=== PATIENT | male | born 1940 | race Caucasian/White ===

== ENCOUNTER → 2020-04-05 10:27 | Outpatient (CLI) | payer MEDICARE, SELFPAY ==
--- NOTE | 2020-04-05 10:36 | DI.NM.S_ITS ---
PROCEDURE: NM BONE SCAN WHOLE BODY RADIOPHARMACEUTICAL: 17.80 mCi Tc-99m MDP IV. INDICATIONS: PROSTATE CANCER TECHNIQUE: Delayed whole-body scintigrams were obtained approximately 3-4 hours after intravenous injection of radiotracer. Anterior and posterior views were acquired from vertex to feet. Additional left and right oblique views of the pelvis were obtained. COMPARISON: [facility], CT, CT CHEST ABD PEL W CON, 04/05/2020, 12:10. FINDINGS: Symmetric and mildly increased uptake in bilateral shoulder joints, sternoclavicular joints, hip joints, knee joints and ankle joints are seen most consistent with osteoarthritic changes. No focal area of intensely increased uptake is noted to suggest focal bony metastasis. Mildly increased uptake in mid to lower lumbar spine is seen consistent with degenerative disc disease. IMPRESSION: 1. No evidence of bony metastasis. 2. Osteoarthritic changes and degenerative disc disease as above. Dictated by: Phill Salazar M.D. on 04/05/2020 at 15:37 Approved by: Phill Salazar M.D. on 04/05/2020 at 15:40
--- NOTE | 2020-04-05 10:37 | DI.CT.S_ITS ---
PROCEDURE: CT CHEST ABD PEL W CON INDICATIONS: PROSTATE CANCER TECHNIQUE: After the administration of oral and intravenous contrast, 5 mm thick sections acquired from the lung apices to the symphysis. 5 mm coronal and sagittal reformats were performed, with additional 7 mm coronal MIP reformats through the lungs. For radiation dose reduction, the following was used: automated exposure control, adjustment of mA and/or kV according to patient size. COMPARISON: None. FINDINGS: Image quality: Excellent. CHEST: Lungs and pleura: Scattered subsegmental atelectasis and/or scarring. No focal consolidation. No pleural effusions or pneumothorax. Minimal diffuse bronchiectasis Airway thickening in keeping with nonspecific bronchitis and/or reactive airways disease. Mediastinum: Heart size is normal. Coronary artery calcifications are present. No pericardial effusion. No mediastinal or hilar adenopathy by size criteria. Thoracic aorta and central pulmonary arteries are normal in size. Esophagus is normal in caliber. No hiatal hernia. Chest wall: No axillary or supraclavicular adenopathy by size criteria. Thyroid gland negative. ABDOMEN: Solid organs: Liver is normal in size and enhancement. Gallbladder negative. Biliary system is non dilated. Pancreas enhances normally. Spleen is normal in size and enhancement. No adrenal nodules. Kidneys demonstrate normal size and enhancement, without hydronephrosis. There is left parapelvic cyst. Peritoneum and bowel: Bowel loops demonstrate normal wall thickness and caliber. No free fluid or air. Colonic diverticulosis is seen without evidence of acute complication. Nodes and vessels: No retroperitoneal or mesenteric adenopathy by size criteria. Aorta and inferior vena cava are normal in size. Miscellaneous: No ventral hernias. PELVIS: Genitourinary: Markedly enlarged prostate. Bladder partially collapsed otherwise unremarkable. Riley catheter is noted. Miscellaneous: No inguinal hernias or adenopathy. Bones: 3 mm sclerotic focus in the proximal right femur on image 125/2. No vertebral body compression fractures. Spondylosis and facet arthropathy. IMPRESSION: Overall, no evidence of metastatic disease. Enlarged prostate. Nonspecific sub-5 mm sclerotic focus involving the proximal right femur. Recommend attention to this area on pending bone scan. Dictated by: Navi Taylor M.D. on 04/05/2020 at 13:29 Approved by: Navi Taylor M.D. on 04/05/2020 at 13:44
[2020-04-05 11:36] LABS: BUN Creatinine Ratio 26.5 (6-22); Blood Urea Nitrogen 22 mg/dL (9-20); Calcium 9.8 mg/dL (8.4-10.2); Carbon Dioxide 24 mmol/L (22-32); Chloride 108 mmol/L (98-107); Estimated Glomerular Filt Rate > 60.0 mL/min (>60); Glucose 92 mg/dL (80-110); HEMOLYSIS 17 (0-50); Potassium 4.3 mmol/L (3.4-5.1); Sodium 138 mmol/L (137-145)
== END ==
PROVIDERS: PCP Family Medicine; Referring Provider Specialist; Visit Provider Specialist
DX: C61 Malignant neoplasm of prostate (principal); R97.20 Elevated prostate specific antigen [PSA]; R33.9 Retention of urine, unspecified; I25.10 Atherosclerotic heart disease of native coronary artery without angina pectoris; N28.1 Cyst of kidney, acquired; K57.90 Diverticulosis of intestine, part unspecified, without perforation or abscess without bleeding
CPT/HCPCS: 36415; 71260; 74177; 78306; 80048; A9503; Q9967

== ENCOUNTER → 2020-05-02 12:26 | Outpatient (CLI) | payer MEDICARE, SELFPAY ==
--- NOTE | 2020-05-02 | DI.MRI.S_ITS ---
PROCEDURE: MR PELIS WO/W CON INDICATIONS: elevated prostate specific antigen TECHNIQUE: Coronal HASTE, axial T1 FSE with fat saturation, 3-plane nonbreath-hold T2 FSE. After the administration of contrast, dynamic axial, delayed axial and coronal VIBE or 2-D FLASH with fat saturation through the pelvis. Optional diffusion weighted imaging and ADC may be performed. COMPARISON: [facility], NM, NM BONE SCAN WHOLE BODY, 04/05/2020, 14:05. [facility], CT, CT CHEST ABD PEL W CON, 04/05/2020, 12:10. FINDINGS: Image quality: Diffusion weighted and dynamic contrast enhanced images are diagnostic. Prostate: Gland size is 6.0 x 5.9 x 6.1 cm; ellipsoid gland volume is 112 mL. There is marked heterogeneous enlargement of the transition zone compatible with BPH. No evidence of extraprostatic extension. Lesion size(s): Lesion 1: 1.7 x 1.3 x 1.6 cm. Lesion 2: 1.0 x 0.8 x 0.8 cm. Lesion 3: 2.0 x 1.8 x 2.2 cm. Lesion location(s) (sector): Lesion 1: Left lateral transition zone in the mid gland. Lesion 2: Right lateral transition zone in the mid gland to apex. Lesion 3: Right medial transition zone in the mid gland. Lesion description: Lesion 1: T2 hypointense oval lesion with indistinct margins. Lesion 2: T2 hypointense oval lesion with indistinct margins. Lesion 3: T2 hypointense lenticular lesion with irregular margins. T2 weighted imaging (T2WI) morphology score: Lesion 1: 5 Lesion 2: 4 Lesion 3: 5 Diffusion weighted imaging (DWI) morphology score: Lesion 1: 3 Lesion 2: 3 Lesion 3: 3 Dynamic contrast enhancement (DCE): Lesion 1: Present Lesion 2: Present Lesion 3: Present Lesion PI-RADS score: Lesion 1: PI-RADS 5 Lesion 2: PI-RADS 4 Lesion 3: PI-RADS 5 Genitourinary system: There is concentric bladder wall thickening and trabeculation suggesting chronic bladder outlet ejection. A urinary bladder is present extending into the bladder. Distal ureters are non distended. Bowel and peritoneum: No pathologic free pelvic fluid. Inferior colon and small bowel loops are normal in caliber. There is colonic diverticulosis without acute diverticulitis. Nodes and vessels: No pelvic or inguinal adenopathy by size criteria. Iliac vessels are normal in caliber. Soft tissues: No inguinal hernias. Bones: Marrow demonstrates normal overall signal, without suspicious lesions to suggest metastases. There is mild periarticular edema and enhancement within the ileum along the right inferior sacroiliac joint. IMPRESSION: 1. Bilateral suspicious lesions demonstrated in the transition zone including 2 PI-RADS 5 lesions consistent with very high likelihood of clinically significant prostate cancer. An additional smaller right PI-RADS 4 lesion is also demonstrated. 2. No evidence of extraprostatic extension or lymphadenopathy in the pelvis by size criteria. 3. No evidence of osseous metastatic disease in the pelvis. Degenerative change demonstrated along the inferior right sacroiliac joint. 4. Bladder wall thickening and trabeculation consistent with sequela of chronic bladder outlet obstruction. Dictated by: Vish Saavedra M.D. on 05/03/2020 at 9:27 Approved by: Vish Saavedra M.D. on 05/03/2020 at 10:05
== END ==
PROVIDERS: PCP Family Medicine; Referring Provider Specialist; Visit Provider Specialist
DX: N42.9 Disorder of prostate, unspecified (principal); R97.20 Elevated prostate specific antigen [PSA]; N32.89 Other specified disorders of bladder
CPT/HCPCS: 72197; A9579

== ENCOUNTER 2020-06-17 09:27 | Inpatient (IN) | payer MEDICARE, SELFPAY ==
[2020-06-10 10:53] VITALS: BMI 24.2
[2020-06-17] VITALS (14 sets, daily range): BP systolic 108–153; BP diastolic 62–86; PULSE 59–76; RESP 9–20; TEMP 36.1–37; O2SAT 95–100; BMI 24.2
--- NOTE | 2020-06-17 | PATH_ITS ---
[facility] Accession Number: [id number] . 01 Material submitted: . PART A: lymph node - RIGHT PELVIC NODE PART B: lymph node - LEFT PELVIC NODE PART C: prostate - PROSTATE WITH ATTACHED SEMINAL VESICLES . 02 Diagnosis: A. Right Pelvic Lymph Nodes, Excision: Three benign lymph nodes. . B. Left Pelvic Lymph Nodes, Excision: Three benign lymph nodes. . C. Prostate with Attached Seminal Vesicles, Radical Prostatectomy: Prostate with benign prostatic hyperplasia, areas of partial atrophy, and foci of prominent benign basal cell hyperplasia. No evidence of malignancy. [facility] 06/21/2020 1533 Local . 02 Comment: As part of routine quality assurance assessor, Dr. Carver has reviewed select slides from this case (C21, 26, 27, 32, and 33), and agrees with the diagnosis of benign basal cell hyperplasia. . 02 Electronically signed: . Frederick Rose MD, PhD, Pathologist NPI- [id number] . 01 Gross description: . Specimen A is received in formalin, labeled with patient identification and right pelvic node. It consists of two yellow-rose and lobulated soft tissue pieces measuring 3.7 x 2.2 x 1.1 cm in aggregate. There are three lymph node candidates measuring from 0.5 to 2.9 cm in greatest dimension. All the lymph node candidates are submitted. Forms Designer sections are submitted in three cassettes. . Summary of sections: A1 - one bisected lymph node candidate and one intact lymph node candidate (inked blue), three pieces. A2-A3 - on sectioned lymph node candidate, together, four pieces each. . Specimen A is received in formalin, labeled with patient identification and left pelvic node. It consists of a yellow-rose and lobulated soft tissue piece measuring 3.5 x 2.1 x 0.9 cm. There are three lymph node candidates ranging from 0.6 to 1.8 cm in greatest dimension. All of the lymph node candidates are submitted in three cassettes. . Summary of sections: B1 - two intact lymph node candidates, two pieces. B2-B3 - one sectioned lymph node candidate, together, four pieces each. . Specimen C is received in formalin, labeled with patient identification and prostate with attached seminal vesicles. It consists of a 117-gram intact prostate (5.5 cm from superior to inferior, 5.5 cm from left to right, and 4.8 cm from anterior to posterior) with bilateral seminal vesicles (L: 2.5 x 1.2 x 0.5 cm; R: 2.8 x 1.5 x 0.9 cm) and bilateral vasa differentia (2.1 to 4.4 cm in length and 0.5 cm in diameter). The capsule is pink-rose and ragged. The specimen is inked as follows: anterior midline-orange; posterior midline-yellow; right-black; left-blue. After removal of the base and apex margins, the prostate is sectioned into 10 slices. Sectioning reveals multicystic and multinodular cut surfaces. A 2.3 x 2.1 x 2.0 cm well-defined grider-orange focus is present at the posterior right periphery, involving slices 4 and 7. Forms Designer sections are submitted in 42 cassettes. . Summary of sections: C1 - right seminal vesicle and vas deferens, two pieces. C2 - left seminal vesicle and vas deferens, two pieces. C3-C4 - left base margin, perpendicular, six pieces ach. C5-C6 - right base margin, perpendicular, six in C5, five in C6. C7 - right apex margin, perpendicular, seven pieces. C8 - left apex margin, perpendicular, eight pieces. C9-C10 - slice 2, right prostate, one piece each. C11-C12 - slice 2, left prostate, one piece13 each. C13 - C15 - slice 4, right prostate, one piece each. C16-C18 - slice 4, left prostate, one piece each. C19-C21 - slice 5, right prostate, one piece each. C22-C24 - slice 5, left prostate, one piece each. C25-C27 - slice 6, right prostate, one piece each. C28-C30 - slice 6, left prostate, one piece each. C31-C33 - slice 7, right prostate, one piece each. C34-C36 - slice 7, left prostate, one piece each. C37-C39 - slice 9, right prostate, one piece each. C40-C42 - slice 9, left prostate, one piece each. (TN:[id number]) /MRV 06/18/2020 1522 Local . 02 Microscopic: . Sections are of benign prostatic parenchyma. There are a few foci with prominent clusters of epithelioid cells with bland cytology and no signficant mitotic activity (present in blocks C21, 26, 27, 32, 33). To further evaluate these cells of interest, a limited panel of immunohistochemical stains is performed on block C26 (each with an appropriately positive control). The cells of interest are strongly and diffusely positive for high molecular weight keratin/p63 immunoreactivity, and are negative for PA-3 immunoreactivity. The morphology and immunoprofile are consistent with basal cell hyperplasia, and exclude the possibility of prostatic or urothelial neoplasm. . * This test was developed and its performance characteristics determined by [facility]. It has not been cleared or approved by the U.S. Food and Drug Administration. The FDA has determined that such clearance or approval is not necessary. This test is used for clinical purposes. It should not be regarded as investigational or for research. . 02 Pathologist provided ICD-10: N40.1, R33.9, R97.20 . 02 CPT . 084799, 010346, 343907, [id number], [id number] Performed at: 01 [facility] [address], [place], [place] [id number] MD Vish Russo MD Phone: [phone] Performed at: 02 [facility] [address] [place], [place] [id number] MD Sherri Carver MD Phone: [phone]
[2020-06-17] MEDS: LACTATED RINGERS 1,000 ML 42 ML IV ×2 (11:35→15:25)
[2020-06-17] MEDS: VANCOMYCIN 1,000 MG/200 ML PIGGYBACK 200 MG IV (11:44)
--- NOTE | 2020-06-17 12:01 | PM.PREOP ---
Pre-operative Note Interval Note History & Physical reviewed/Exam performed by Physician: Yes Changes to H&P: No
[2020-06-17 12:43] LABS: Hematocrit 44.1 % (41-53); Hemoglobin 14.8 g/dL (13.5-17.5); Mean Corpuscular HGB Conc 33.5 % (30-36); Mean Corpuscular Hemoglobin 29.9 PG (26-34); Mean Corpuscular Volume 89.3 fL (80-100); Platelet Count 129 X10^3/uL (150-400); Red Blood Cell Count 4.94 X10^6/uL (4.5-5.9); Red Cell Distribution Width 13.2 % (11.6-14.8); White Blood Cell Count 5.1 X10^3/uL (4.5-11.0)
[2020-06-17] MEDS: GENTAMICIN 160 MG in SODIUM CHLORIDE 0.9% 100 ML 104 ML IV (12:52)
[2020-06-17 12:57] LABS: BUN Creatinine Ratio 23.5 (6-22); Blood Urea Nitrogen 19 mg/dL (9-20); Calcium 10.4 mg/dL (8.4-10.2); Carbon Dioxide 28 mmol/L (22-32); Chloride 106 mmol/L (98-107); Estimated Glomerular Filt Rate > 60.0 mL/min (>60); Glucose 87 mg/dL (80-110); HEMOLYSIS 16 (0-50); Potassium 4.7 mmol/L (3.4-5.1); Sodium 139 mmol/L (137-145)
[2020-06-17] MEDS: ACETAMINOPHEN IV 1,000 MG/100 ML VIAL 400 MG IV (13:18)
[2020-06-17] MEDS: BUPIVACAINE LIPOSOME 266 MG/20 ML VIAL INJ (13:51)
--- NOTE | 2020-06-17 15:25 | PM.OP.1 ---
Operative Date/Time/Diagnoses Date of procedure: 06/17/20 Time of procedure: 15:25 Pre-op diagnosis: Urinary retention Elevated PSA Post-op diagnosis: same Procedure & Clinicians Procedure: 1. Radical retropubic prostatectomy and bilateral pelvic lymphadenectomy Same procedure as scheduled: Yes Indications: 1. Urinary retention 2. Elevated PSA Director Of Child Welfare Services: Ivanna Villanueva Click Yes if Unassisted: No Anesthesia Type: General, Spinal (Duramorph) and Local (1.33% Exparel) Operative Notes Findings: Normal tissue planes. Lymph node packets were palpably and visibly benign. The prostate was markedly enlarged without suspicious areas seen at the level of the capsule. Closure Type: primary Specimen(s): none sent (1. Left pelvic lymph nodes. 2. Right pelvic lymph nodes. 3. Prostate with attached seminal vesicles.) Applied: catheter (Eighteen Bulgarian silicone Riley catheter) and drain(s) (Fifteen Bulgarian fenestrated Florian drain) Estimated Blood Loss (mL): 50 Blood products transfused: none Tourniquet time (min): 0 Procedure in detail: Patient was positioned in supine following did administration of Duramorph spinal anesthetic. He was provided general anesthetic. The abdomen genitalia and groin were then prepped and draped in sterile fashion. A 20 Bulgarian Riley catheter was inserted lower urinary tract the balloon inflated to 10 cc is placed to gravity drainage. Next a midline infraumbilical incision was made using sharp cautery and blunt technique. The pelvic retroperitoneum was then entered. The peritoneal contents were then reflected superiorly the anterior lateral pelvic sidewalls were then carefully exposed using blunt technique. Using the same steps and maneuvers bilateral pelvic lymph node dissection was performed as follows: The thin adventitia overlying the external iliac vein was divided along its length. The obturator nerve and vessels were identified. Using meticulous blunt technique and cautery technique with the LigaSure Impact device each of the alcon packets were dissected from the obturator fossa. There were then labeled as to the site of procurement and submitted to pathology for routine gross and microscopic examination. The endopelvic fascia was then divided on either side of the prostate. Longitudinal incisions were made the lateral aspect of the prostatic fascia of bilaterally the thin fascial envelope layers were then reflected posteriorly against the rectal wall using blunt technique. The dorsal venous complex was then gathered with a Wolverton clamp. An over hand suture ligature of 0 Monocryl was then applied. A dorsal venous complex was then divided with the LigaSure Impact device. Hemostasis was excellent. Next, the area the prostatic apex and urethra were addressed and careful dissection was carried out to separate the posterior lateral neural pathways from the urethra proper. The urethra was then divided immediately beyond the prostatic apex. The catheter was then cut and brought through the urethra and into the operative field so that the prostate could be reflected anteriorly and superiorly. The rectal urethralis fascia was then divided using blunt and cautery technique with the LigaSure Impact device. A plane was developed between to non base fashion the anterior rectal wall. The posterior lateral vascular pedicles were then carefully isolated successively with applications of large surgical clips were indicated and division with the LigaSure Impact device were indicated, for hemostasis. Now the prostate reflected anteriorly superiorly a transverse incision was made through the non base fascia over the base of the seminal vesicles bilaterally. The seminal vesicles and the ampulla vas as on both sides were then carefully dissected free of surrounding attachments and small vasculature using medium hemo lock clips and sharp division. The bladder neck was then carefully divided from the prostatic base using blunt and cautery technique the specimen was then handed off the field labeled prostate with attached seminal vesicles for routine gross and microscopic examination. The bladder neck was then repaired by a facing the mucosa using an interrupted Lembert technique of 4 0 Monocryl. A small tennis racquet handle repair was then performed posteriorly at 6:00 a.m. using a single horizontal mattress of 0 Monocryl. The Janette sound was then position into the urethra and engaged to expose the distal urethral stump. Interrupted 2 0 Monocryl were placed at the 2468 and 10:00 a.m. positions from outside to inside under direct visualization. The same sutures were brought through their corresponding positions at the neobladder neck. An 18 Bulgarian silicone catheter was then inserted lower urinary tract and then with this tip position within the bladder lumen under direct visualization the balloon was then inflated to 15 cc the neobladder neck and the urethral stump were then brought into approximation and the anastomotic sutures were then tied down successively thus completing the vesicourethral anastomosis. The catheter was then irrigated clear and placed to gravity drainage. A 15 Bulgarian Florian drain was then passed through a separate stab incision to the right of the midline incision and then positioned in posterior the pubic symphysis. It was secured at the level of skin with a 2 0 silk using a Parth Santyl technique. Next the midline fascia and skin were infiltrated with local anesthetic. The fascia was then closed using running 0 PDS beginning at each the superior, and the inferior apex and running it to approximately the mid point were the 2 were then tied to 1 another. The subcutaneous layer was reapproximated a running 2 0 Vicryl. Finally the skin was reapproximated with a running subcuticular 4 0 Monocryl. Then pieces of Telfa were then applied to the incision line and a broader sq to the drain site op site dressing was then applied over each of the Telfa was period the drain was placed to bulb self suction the Riley catheter was left to gravity drainage. The patient was then awakened, transferred to [facility], and transported to recovery room. Complications: none Post-operative Condition: stable Disposition: PACU Plan for aftercare: Acute Care
--- NOTE | 2020-06-17 16:04 | SUR.PHASEI ---
Addendum entered by Ashleigh Wall R.N. 06/17/20 16:06: 1550 - Report received from EROS Gee and care assumed. Original Note: 1555 - Report received from EROS Gee and care assumed.
--- NOTE | 2020-06-17 16:12 | SUR.PHASEI ---
1610 - Report given to EROS Gee and care reassumed.
[2020-06-17] MEDS: LACTATED RINGERS 1,000 ML 125 ML IV (17:02)
[2020-06-17] MEDS: diphenhydrAMINE 50 MG/ML VIAL 25 MG IV (18:01)
--- NOTE | 2020-06-17 22:33 | PC.NURSE ---
Pt is A and O x 4, VSS. He has denied pain and nausea. He was able to eat his evening meal and is drinking fluids. SCDs are in place. Urine output is qs, bloody. ANTOLIN output 105 mLs. Dressing has very small amount of break through, otherwise C/D/I. Pt is able to sleep.
[2020-06-18] VITALS (8 sets, daily range): BP systolic 101–142; BP diastolic 57–82; PULSE 61–81; RESP 16–20; TEMP 36.6–37.6; O2SAT 95–99
[2020-06-18] MEDS: LACTATED RINGERS 1,000 ML 125 ML IV (00:41)
--- NOTE | 2020-06-18 05:51 | PC.NURSE ---
Pt is AxOx4, denies any pain Riley is clearing up, however it is still a bit brown/red tinged. ANTOLIN=50mL sanguinous LR@125mL/hr
--- NOTE | 2020-06-18 07:36 | PM.PN.1 ---
Subjective Subjective Date Patient Seen: 06/18/20 Time Patient Seen: 07:36 Interval history: He had a quiet and restful night and provides no complaints of nausea, vomiting or poor control pain. Exam Vital Signs (past 8 hours): - 06/17/20 23:57 06/18/20 04:41 Temperature 98.6 F 99.3 F Pulse Rate 68 63 Respiratory Rate 18 16 Blood Pressure 108/62 101/57 L Pulse Oximetry 97 95 Oxygen Delivery Method Room Air Oxygen Flow Rate 0 Narrative Exam Narrative: He is resting comfortably in bed and in no distress. Chest-equal and nonlabored bilaterally. Heart-regular rhythm and rate Abdomen-flat dressing and drain site are intact. Drain output is light maroon and thin. Extremity-SCDs in place. No pallor edema or cyanosis. Objective Labs Result Diagrams: 06/17/20 12:29 06/17/20 12:29 Labs: Laboratory Results - last 24 hr 06/17/20 06/17/20 06/17/20 12:29 12:29 12:29 WBC 5.1 RBC 4.94 Hgb 14.8 Hct 44.1 MCV 89.3 MCH 29.9 MCHC 33.5 RDW 13.2 Plt Count 129 L Sodium 139 Potassium 4.7 Chloride 106 Carbon Dioxide 28 BUN 19 Creatinine 0.81 Estimated GFR > 60.0 BUN/Creatinine Ratio 23.5 H Glucose 87 Calcium 10.4 H Blood Type O Positive Antibody Screen Negative Assessment & Plan Assessment & Plan narrative: Assessment: 1. Stable postop day 1. Status post radical retropubic prostatectomy and bilateral pelvic lymphadenectomy. Plan: 1. Increase diet and activity. 2. Pathology pending. Quality VTE Deep Vein Thrombosis/Pulmonary Embolism Present on Admission: No
[2020-06-18] MEDS: ACETAMINOPHEN 325 MG TABLET 650 MG PO ×2 (08:34→23:48)
[2020-06-18] MEDS: ENOXAPARIN 40 MG/0.4 ML SYRINGE SUBCUT (08:34)
[2020-06-18] MEDS: BISACODYL 10 MG SUPP PR (08:34)
[2020-06-18] MEDS: OXYCODONE IR 5 MG TABLET PO ×2 (08:34→17:01)
--- NOTE | 2020-06-18 15:10 | CM.DANOTE ---
Addendum entered by Dianne Lim LPN 06/18/20 15:20: Went to pt's room now with intent to meet him, introduced self and role and prn discussion of d/c issues and options. Pt was found out of bed and in the bathroom. Checked in with [employer]. She reports that pt went into bathroom independently but that he is advised to pull the cord when he is ready to get back to bed so someone can be with him.. P: due to caseload triage will need to defer rest of assessment to the DCP team on for tomorrow. Addendum entered by Dianne Lim LPN 06/18/20 15:15: DCP: assessment: case received, EMR reviewed. Discussed in Team Rounds. Pt is a 80 year old male who admitted yesterday for a scheduled radical prostatectomy and bilateral pelvic lymphadenectomy Surgeon: Dr. Juliana Cortez Payer: Rasheed DOYLE [facility]. Pt lives on [facility] with his significant other: Dayana Benitez. Original Note: Discharge Planning/Care Management Advanced directive, confirm from FAMILY Start: 06/17/20 17:02 Freq: Q24H Status: Active Protocol: Document 06/17/20 17:57 SL (Rec: 06/17/20 17:58 SL [id number]) Advance Directive, confirm on record Time 17:58 Person contacted patient Copy received No CM Discharge Assessment Start: 06/18/20 15:09 Freq: Status: Active Protocol: Document 06/18/20 15:09 ITV (Rec: 06/18/20 15:10 ITV [id number]) Discharge Planning Assessment Advance Directives? Yes Advance Directives on File No History Provided By Medical Record Prior Living Arrangements House Household Members significant other Whiteboard Updated in Patient Room with Yes name and ext. # of Beet Worker Review Status In Process Pre-Anesthesia Assessment Start: 06/10/20 10:53 Freq: Status: Complete Protocol: Document 06/10/20 10:53 CAB (Rec: 06/10/20 11:29 CAB [id number]) Pre-Anesthesia Assessment Preferred Name Otf Patient Information Reviewed Via Phone Assessment Assessment Completed With Patient Diagnostic Results BMP/CMP,Urinalysis Comment Outside labs scanned in, no EKG identified, COVID screen on [place] 06/14 Primary Care Provider Aguila Duque Seen Specialist in Last 12 Months Yes Specialist Seen Urologist Primary Language Malay Police Shift Commander Required No Height 177.8 cm Weight 76.657 kg Body Mass Index (BMI) 24.2 Hearing Ability Hard of Hearing Visual Assist Glasses Dentition Type Teeth, Natural Present Barriers to Learning None Comment Diminished hearing, no aids Hx Anesthesia Reactions Pt states no prior surgical history Hx Family Anesthesia Reaction No Hx Malignant Hyperthermia No Hx Blood Transfusions No Anesthesia Review Requested No alcohol intake current alcohol intake frequency a few times a week Smoking Status Never smoker Substance Use Type does not use Pain Present Pain Reported History of Falling (Recent or History of No ) Patient is completely paralyzed or No completely immobile Mental Status Oriented to own ability Comment Balance issues Is patient on oxygen? No Does patient have FOSTER/SOB No Hx Sleep Apnea No Currently Taking a Beta [place] No Can You Climb a Flight of Stairs Without Yes SOB Hx Chest Pain No Hx SOB No Hx Syncope or Dizziness No Anti-Coagulant Therapy No Has a Dials Supervisor No Cardiac Testing No Hx Pacemaker/ICD No Pacemaker Rep Required? No Cardiac Clearance Received Not Applicable Diet Type At Home Regular dysphagia No Bladder Pattern Retention Urinary Catheter Present Yes Hx Urinary Self Catheterization No Diabetes No Hx Drug Resistant Organism No Presence of External or Internal Medical Yes: Riley catheter in place Devices Have you had any close contact with No someone diagnosed with COVID-19? Marital Status Lives With significant other Prior Living Arrangements House Number of Floors (Floors) One Floor Support System Family,Significant Other Does the Patient Have Assistance After Yes Surgery Patient Discharge Plan Description Return Home Comment Lives on [facility] Additional comment Pt advised 2 night length of stay per surgeon Feels Safe in Current Environment Yes Been Physically Hurt or Threatened By a No Person in Current Environment Do you have thoughts of harming yourself None or others? Are you currently considering suicide? No Do you have a plan to hurt yourself or No Plan others? Do You Have Any Spiritual Beliefs That No May Affect Your HC Choices? Do You Have Any Cultural Practices That No May Affect Your HC Choices? Comment Atheist Who Can We Speak to About Patient's Care Family, friends Identifying Code for Release of Patient Declines to issue Information Health Care Proxy/Next of Kin Dayana Huerta) Health Care Proxy Phone Number Dayana: [phone] or Nabila: [phone] Emergency Contact Name Dayana Benitez ( S.OAleksandra) Nabila ( Dayana's daughter) Emergency Contact Phone Number Dayana: [phone] or Nabila: [phone] Advance Directives? Yes: Working on paperwork at home Advance Directives on File No Requested Patient Bring Advanced Yes Directives DOS Power of Boiler Operator Yes: Pt unsure who POA is PAC Instructions Medications to take/avoid,No ETOH/petroleum product on skin DOS,NPO,Post-op transportation,Sturdy shoes/ comfortable clothes,Do not bring valuables and remove jewelry
[2020-06-18] MEDS: HYDROMORPHONE 0.5 MG INJ IV (18:39)
--- NOTE | 2020-06-18 22:10 | PC.NURSE ---
End of shift note. earlier in the shift, pt c/o blood tinged urine leaking around the catheter. Irrigated slowly with 20ml sterile saline, urine returned clear, no clots noted. No leaking noted for the remainer of the shift. Up ambulating independently, medicated for pain prn, VSS.
--- NOTE | 2020-06-19 00:15 | PC.NURSE ---
Pt awoke from sleeping and was concerned that he was altered: weak, unable to lift his head more than 15 degrees off the pillow, too warm, having a reaction to pain medications; I am completely knocked out. VSS, temp 99.0, PERRLA, A and O x 4. Removed some blankets, took off SCDs and socks and repositioned patient. Stated he was cold. Gave him a warm blanket and he attempted to sleep again. Riley draining clear allegra urine, dressing for ANTOLIN has some shadow drainage. Pt denies N and states he only has pain with mvmt.
[2020-06-19 00:49] VITALS: TEMP 37
[2020-06-19 04:48] VITALS: BP 131/77; PULSE 66; RESP 20; TEMP 36.8; O2SAT 96
--- NOTE | 2020-06-19 07:52 | PM.DS.1 ---
History of Present Illness History of Present Illness Date Patient Seen: 06/19/20 Time Patient Seen: 07:52 Chief complaint: RRP Narrative: 1. Urinary retention 2. Elevated PSA Discharge Providers Provider Date of admission: 06/17/20 09:27 Discharge Date: 06/19/20 Primary care physician: ollie killian Discharge provider: Joaquín Edouard MD Summary Hospital Course Discharge Diagnosis: 1. Urinary retention 2. Elevated PSA Hospital Course: The patient was admitted on the morning of 06/17/2020 and underwent uncomplicated radical retropubic prostatectomy and bilateral pelvic lymphadenectomy under general and Duramorph spinal anesthesia. His postoperative course was largely unremarkable and that he tolerated general diet the evening immediately postop. He ambulated without assistance beginning in the morning of the 1st postoperative day. Pain was well controlled with local anesthetic and oral and IV analgesics. On the morning of 06/19/2020 he was stable for discharge. Pathology was pending at discharge. He is provided routine catheter care and use instruction. Prescriptions for ciprofloxacin an tramadol were provided with review of common side effects, intake instructions, and precautions. A follow-up visit will be arranged in 6-8 weeks with PSA and PVR in the Urology Clinic. Status at Discharge Cognitive/behavioral status at discharge: oriented Functional status at discharge: independent ambulation Overall status at discharge: patient is back to baseline Exam Vital Signs (past 8 hours): - 06/18/20 23:57 06/19/20 00:49 06/19/20 04:48 Temperature 99.2 F 98.6 F 98.2 F Pulse Rate 81 66 Respiratory Rate 20 20 Blood Pressure 139/80 131/77 Pulse Oximetry 95 96 Oxygen Delivery Method Room Air Oxygen Flow Rate 0 Objective Labs Result Diagrams: 06/17/20 12:29 06/17/20 12:29 Discharge Plan Discharge Plan Patient Disposition: Home Discharge comment: Contact Urology Clinic to schedule postop appointment in 6-8 weeks with PSA and PVR. Discharge orders & Medications Prescriptions: New tramadol 50 mg tablet 50 mg PO Q6H PRN (Reason: pain) Qty: 30 RF: 0 ciprofloxacin HCl 250 mg tablet 250 mg PO Q12H Qty: 6 RF: 0 enoxaparin [Lovenox] 40 mg/0.4 mL Syringe 40 mg SUBCUT DAILY 30 Days Qty: 4 RF: 0 Continued ibuprofen [Advil] 200 mg tablet 400 mg PO Q6H PRN (Reason: Pain) RF: 0 Follow up/Referrals: Real Zuniga MD [Primary Care Provider] - Joaquín Edouard MD [Physician] - Diet/Activity/Treatments Diet: Diet as Tolerated Activity: No driving for 2 weeks No lifting greater than 15 lb for 4 weeks May shower. No bathing swimming or hot tub in for 2 weeks Catheter: 2-way Riley Skin/Wound/Dressing Care Skin care: Leave incision open to air. Avoid tight-fitting trouser, belt sanjiv,etc. Report to your healthcare provider any signs of infection, such as:: chills, fever, night sweats, increased pain and unusual redness Visit Report/Discharge Packet Instructions: DI for Heart Failure, DI for Prescription Opioid Use, DI for Radical Prostatectomy Stand Alone Forms: Surgery Discharge Discharge Data Primary Care Provider: Real Zuniga Quality VTE Deep Vein Thrombosis/Pulmonary Embolism Present on Admission: No
[2020-06-19 08:18] VITALS: BP 140/69; PULSE 68; RESP 16; TEMP 36.6; O2SAT 96
[2020-06-19] MEDS: ACETAMINOPHEN 325 MG TABLET 650 MG PO (08:49)
[2020-06-19] MEDS: ENOXAPARIN 40 MG/0.4 ML SYRINGE SUBCUT (08:50)
[2020-06-19] MEDS: BISACODYL 10 MG SUPP PR (08:50)
--- NOTE | 2020-06-19 09:39 | PC.NURSE ---
Addendum entered by Briseyda Shea R.N. 06/19/20 12:10: Patient teaching done today about leg mason, lovenox injections, new medications and incision/surgery after care. Teaching was done w/ patient and partner. Patient and partner understood all teaching and instruction. Hand outs given for lovenox injections sub cutaneous. Patient and partner verbalized understanding. Patient wheeled out to private car by MATHEMATICS EDUCATION PROFESSOR and is at his side to take him home. Original Note: At 0900 patient's ANTOLIN drain was removed. Patient tolerated well. No signs s/s of infection. Dressing was removed on midline incision, no s/s of infection noted, incision is intact. Patient is taking 600 mg tylenol for pain /. VSS, lung sounds clear, bowel tones present is all 4 quadrants. Patient has mason, producing yellow/orange urine. No blood clots noted. Patent and draining.
--- NOTE | 2020-07-11 14:30 | PM.HP.1 ---
History of Present Illness History of Present Illness Chief complaint: RRP Narrative: 1. Urinary retention 2. Elevated PSA Otf is a 80-year-old gentleman history of urinary retention with indwelling Riley and failure of medical therapy. Most recent PSA was greater than 30. CT scan of the chest abdomen and pelvis with contrast 04/05/2020 showed no evidence of neoplasm or metastatic disease. Bone scan 04/05/2020, likewise showed no evidence of osseous metastasis. MRI with contrast of the pelvis on 05/02/2020 demonstrated 3 distinct PI-RAD 4 and 5 lesions bilaterally in the prostate. Given PSA greater than 30, recalcitrant urinary retention, and extensive imaging survey indicating high likelihood of localized carcinoma of the prostate in the absence of metastatic disease, option of prostate biopsy versus proceed to prostatectomy were discussed at length and in detail with he and his . He has chosen the latter for reasons of [place], and acknowledgement of high likelihood of prostate cancer. Patient History Medical History (Updated 06/10/20 @ 11:07 by Ese Mitchell RN) Cataracts, bilateral (Acute) Elevated PSA (Acute) Hearing decreased (Acute) Indwelling Riley catheter present (Acute ~01/2020) Urinary retention (Acute) Surgical History (Updated 06/10/20 @ 11:07 by Ese Mitchell RN) History of colonoscopy (Acute) No history of previous surgery (Acute) Family & Social History Social History: household members significant other Prior Living Arrangements House Safety & Behavioral: Feels Safe in Current Yes Environment Been Physically Hurt or No Threatened By a Person Suicidal Ideation Description None Suicide Plan Description No Plan Tobacco & Substance use: Smoking Status Never smoker alcohol intake current alcohol intake frequency a few times a week Substance Use Type marijuana Meds Home Medications and Allergies Home Medications Medication Instructions Recorded Confirmed Type ibuprofen 200 mg tablet 400 mg PO Q6H PRN 05/13/20 06/17/20 History ciprofloxacin HCl 250 mg PO Q12H #6 tab 06/19/20 Rx enoxaparin [Lovenox] 40 mg SUBCUT DAILY 30 Days #4 ml 06/19/20 Rx tramadol 50 mg PO Q6H PRN #30 tab 06/19/20 Rx sulfamethoxazole 800 1 tab PO BID #20 tab 07/10/20 Rx mg-trimethoprim 160 mg tablet Allergies Allergy/AdvReac Type Severity Reaction Status Date / Time No Known Drug Allergies Allergy Verified 06/17/20 11:57 Exam Vital Signs (past 8 hours): Oxygen Delivery Method Room Air Oxygen Flow Rate 0 Objective Labs Result Diagrams: 06/17/20 12:29 06/17/20 12:29 Assessment & Plan Assessment & Plan narrative: Assessment: 1. Urinary retention. 2. Markedly elevated PSA. Plan: 1. Radical retropubic prostatectomy and bilateral pelvic lymphadenectomy. Quality VTE Deep Vein Thrombosis/Pulmonary Embolism Present on Admission: No
== END 2020-06-19 12:25 | disposition home or self-care (01) | DRG 667 ==
PROVIDERS: Admitting Provider Specialist; PCP Family Medicine; Referring Provider Specialist; Visit Provider Specialist
PROC: 0VT00ZZ Resection of Prostate, Open Approach (ICD-10-PCS; principal; 2020-06-17 12:30)
DX: R33.9 Retention of urine, unspecified (principal); R97.20 Elevated prostate specific antigen [PSA]
CPT/HCPCS: 36592; 55845; 80048; 85027; 86850; 86900; 86901; 87077; 87086; 87186; 94762; C9290; J0131; J0330; J1100; J1170; J1200; J1650; J2274; J2405; J2704

== ENCOUNTER → 2020-08-15 10:16 | Outpatient (CLI) | payer MEDICARE, SELFPAY ==
[2020-06-17 10:05] VITALS: BMI 24.2
== END ==
PROVIDERS: PCP Family Medicine; Visit Provider Specialist
DX: N39.0 Urinary tract infection, site not specified (principal); N39.3 Stress incontinence (female) (male)
CPT/HCPCS: 51798; 81002; 87077; 87086; 87186; 99213

== ENCOUNTER → 2022-11-19 09:31 | Outpatient (CLI) | payer MEDICARE, SELFPAY ==
[2020-06-17 10:05] VITALS: BMI 24.2
[2022-11-19 21:00] LABS: Basophils Absolute Auto 0 /uL (0-100); Basophils Percent Auto 0.8 % (0-2); Eosinophils Absolute Auto 200 /uL (0-450); Eosinophils Percent Auto 3.7 % (2-4); Hematocrit 45.6 % (41-53); Hemoglobin 15.3 g/dL (13.5-17.5); Lymphocytes Absolute Auto 2200 /uL (1100-4500); Lymphocytes Percent Auto 38.3 % (25-40); Mean Corpuscular HGB Conc 33.6 % (30-36); Mean Corpuscular Hemoglobin 30.1 PG (26-34); Mean Corpuscular Volume 89.8 fL (80-100); Monocytes Absolute Auto 400 /uL (0-900); Monocytes Percent Auto 7.3 % (3-14); Neutrophils Absolute Auto 2900 /uL (1500-7000); Neutrophils Percent Auto 49.9 % (50-75); Red Blood Cell Count 5.08 X10^6/uL (4.5-5.9); White Blood Cell Count 5.8 X10^3/uL (4.5-11.0)
[2022-11-19 21:07] LABS: Alanine Aminotransferase 14 IU/L (<50); Albumin Globulin Ratio 1.2 (1.0-2.8); Alkaline Phosphatase 92 U/L (38-126); Aspartate Aminotransferase 22 IU/L (17-59); BUN Creatinine Ratio 27.7 (6-22); Bilirubin Total 1.2 mg/dL (0.2-1.3); Blood Urea Nitrogen 23 mg/dL (9-20); Calcium 9.4 mg/dL (8.4-10.2); Carbon Dioxide 23 mmol/L (22-32); Chloride 109 mmol/L (98-107); Estimated Glomerular Filt Rate > 60 mL/min (>60); Globulin 3.3 g/dL (1.7-4.1); Glucose 84 mg/dL (80-110); Potassium 4.3 mmol/L (3.4-5.1); Sodium 140 mmol/L (137-145); Total Protein 7.3 g/dL (6.3-8.2)
[2022-11-19 21:11] LABS: HEMOLYSIS 54 (0-50)
[2022-11-19 21:38] LABS: Add Manual Diff / Slide Review SLIDE REVIEW
[2022-11-19 21:40] LABS: Platelet Estimate Decreased on smear
[2022-11-19 21:42] LABS: RBC Morphology Normal Morphology
[2022-11-19 22:47] LABS: Prostate Specific Antigen < 0.064 ng/mL (0.10-4.00)
== END ==
PROVIDERS: PCP Family Medicine; Visit Provider Family Medicine
DX: Z00.00 Encounter for general adult medical examination without abnormal findings (principal); Z85.46 Personal history of malignant neoplasm of prostate; K63.5 Polyp of colon
CPT/HCPCS: 80053; 84153; 85025

== ENCOUNTER → 2023-09-13 10:50 | Outpatient (CLI) | payer MEDICARE, SELFPAY ==
[2020-06-17 10:05] VITALS: BMI 24.2
--- NOTE | 2023-09-13 11:01 | DI.MRI.S_ITS ---
PROCEDURE: MR HEAD/BRAIN WO/W CON INDICATIONS: imbalance, speech slurring TECHNIQUE: Noncontrast axial T1 spin echo, axial T2 fast spin echo, sagittal and axial FLAIR, coronal T2 fast spin echo, axial gradient echo, axial diffusion and ADC through the brain. After the administration of contrast, axial and coronal and sagittal T1 spin echo with fat saturation through the brain. COMPARISON: None. FINDINGS: Image quality: Excellent. CSF spaces: Basal cisterns are patent. No extra-axial fluid collections. Ventricles are normal in size and shape. Brain: No midline shift. No intracranial bleeds or masses. No abnormal intracranial enhancement. There is cerebral volume loss for age. There is periventricular white matter chronic small vessel ischemic change. The brainstem appears normal. Diffusion-weighted images demonstrate no acute ischemic insults. No chronic ischemic insults. Normal intravascular flow voids are present. Skull and face: Calvarial marrow is normal in signal. Orbits appear normal. Sinuses: Sinuses and mastoids appear clear. IMPRESSION: 1. No cause for patient's symptoms is identified. 2. No acute or subacute infarct. No acute intracranial abnormalities. 3. Age-related global volume loss and chronic microvascular ischemic changes. Dictated by: Musa Smith M.D. on 09/13/2023 at 12:24 Approved by: Musa Smith M.D. on 09/13/2023 at 12:26
== END ==
PROVIDERS: PCP Family Medicine; Referring Provider Family Medicine; Visit Provider Family Medicine
DX: R26.89 Other abnormalities of gait and mobility (principal); R47.81 Slurred speech; Z91.81 History of falling; Z85.46 Personal history of malignant neoplasm of prostate
CPT/HCPCS: 70553; A9579

== ENCOUNTER → 2023-09-16 13:15 | Outpatient (CLI) | payer MEDICARE, SELFPAY ==
[2020-06-17 10:05] VITALS: BMI 24.2
[2023-09-16 19:15] LABS: Add Manual Diff / Slide Review NO; Basophils Absolute Auto 0 /uL (0-100); Basophils Percent Auto 0.6 % (0-2); Eosinophils Absolute Auto 100 /uL (0-450); Eosinophils Percent Auto 1.4 % (2-4); Hematocrit 41.6 % (41-53); Hemoglobin 14.3 g/dL (13.5-17.5); Lymphocytes Absolute Auto 2100 /uL (1100-4500); Lymphocytes Percent Auto 35.9 % (25-40); Mean Corpuscular HGB Conc 34.4 % (30-36); Mean Corpuscular Hemoglobin 30.8 PG (26-34); Mean Corpuscular Volume 89.4 fL (80-100); Monocytes Absolute Auto 400 /uL (0-900); Monocytes Percent Auto 6.3 % (3-14); Neutrophils Absolute Auto 3200 /uL (1500-7000); Neutrophils Percent Auto 55.8 % (50-75); Platelet Count 127 X10^3/uL (150-400); Red Blood Cell Count 4.66 X10^6/uL (4.5-5.9); Red Cell Distribution Width 13.7 % (11.6-14.8); White Blood Cell Count 5.7 X10^3/uL (4.5-11.0)
[2023-09-16 19:26] LABS: BUN Creatinine Ratio 26.7 (6-22); Blood Urea Nitrogen 23 mg/dL (9-20); Calcium 10.1 mg/dL (8.4-10.2); Carbon Dioxide 30 mmol/L (22-32); Chloride 103 mmol/L (98-107); Cholesterol 166 mg/dL (140-199); Estimated Glomerular Filt Rate > 60 mL/min (>60); Glucose 105 mg/dL (80-110); HDL Cholesterol 61 mg/dL (40-60); HEMOLYSIS < 15 (0-50); LDL Cholesterol Calculated 87 mg/dL (<100); Potassium 4.2 mmol/L (3.4-5.1); Sodium 139 mmol/L (137-145); Triglycerides 88 mg/dL (35-150)
[2023-09-16 19:46] LABS: Free T4, Direct Thyroxine 0.89 ng/dL (0.78-2.19)
[2023-09-16 20:18] LABS: Vitamin B12 335 pg/mL (239-931)
== END ==
PROVIDERS: PCP Family Medicine; Visit Provider Family Medicine
DX: R26.89 Other abnormalities of gait and mobility (principal); Z91.81 History of falling; Z85.46 Personal history of malignant neoplasm of prostate; R47.81 Slurred speech
CPT/HCPCS: 80048; 80061; 82607; 84439; 85025

== ENCOUNTER → 2024-08-16 11:46 | Outpatient (CLI) | payer MEDICARE, SELFPAY ==
[2020-06-17 10:05] VITALS: BMI 24.2
[2024-08-16 22:07] LABS: TSH w/ Reflex to FT4 2.94 uIU/mL (0.47-4.68)
[2024-08-16 22:42] LABS: Folate 6.8 ng/mL (2.76-20.0); Vitamin B12 667 pg/mL (239-931)
== END ==
PROVIDERS: PCP Family Medicine; Visit Provider Family Medicine
DX: R47.1 Dysarthria and anarthria (principal); Z91.81 History of falling; R26.89 Other abnormalities of gait and mobility
CPT/HCPCS: 82607; 82746; 84155; 84165; 84443

== ENCOUNTER → 2025-06-04 11:25 | Outpatient (CLI) | payer OTHER, SELFPAY ==
[2020-06-17 10:05] VITALS: BMI 24.2
[2025-06-04 19:35] LABS: Add Manual Diff / Slide Review NO; Hematocrit 40.9 % (41-53); Hemoglobin 14.2 g/dL (13.5-17.5); Lymphocytes Absolute Auto 1800 /uL (1100-4500); Mean Corpuscular HGB Conc 34.7 % (30-36); Mean Corpuscular Hemoglobin 30.9 PG (26-34); Mean Corpuscular Volume 88.9 fL (80-100); Platelet Count 105 X10^3/uL (150-400)
[2025-06-04 19:41] LABS: Alanine Aminotransferase 11 IU/L (<50); Albumin 3.9 g/dL (3.5-5.0); Albumin Globulin Ratio 1.6 (1.0-2.8); Alkaline Phosphatase 66 U/L (38-126); Blood Urea Nitrogen 33 mg/dL (9-20); Calcium 9.8 mg/dL (8.4-10.2); Carbon Dioxide 25 mmol/L (22-32); Chloride 107 mmol/L (98-107); Estimated Glomerular Filt Rate > 60 mL/min (>60); Globulin 2.5 g/dL (1.7-4.1); Glucose 77 mg/dL (70-99); HEMOLYSIS < 15 (0-50); Potassium 4.1 mmol/L (3.4-5.1); Sodium 139 mmol/L (137-145); Total Protein 6.4 g/dL (6.3-8.2)
[2025-06-04 20:30] LABS: Vitamin B12 482 pg/mL (239-931)
== END ==
PROVIDERS: PCP Family Medicine; Visit Provider Physician Assistant
DX: R63.0 Anorexia (principal); R26.89 Other abnormalities of gait and mobility; Z85.46 Personal history of malignant neoplasm of prostate; Z12.5 Encounter for screening for malignant neoplasm of prostate
CPT/HCPCS: 80053; 82607; 85025; G0103